=== PATIENT | female | born 1945 | race Caucasian/White ===

== ENCOUNTER → 2019-06-27 | Outpatient (CLI) | payer MEDICARE ==
[~2019-06-27] MED LIST: AC325T PO; ALOE1CAP PO; ASCO1TAB17 PO; CATHETER FLUSH 10 ML SYR IV PRN; CETI5TAB6 PO; ERGO400C PO; FEXO180T PO; FLT05NA16 NSEACH; FLUR100T2 PO; IBUP-30 PO; LEVO175T2 PO; LEVO200T30 PO; LORA10TA7 PO; NIAC250T17 PO; OMEG10005 PO; OMEG1CAP58 PO; REGADENOSON 0.4 MG/5 ML SYR (LEXISCAN) IV ONE; VALS320T8 PO; VITA200C53 PO; citrical PO
[2019-06-27 13:49] VITALS: BP 171/97
--- NOTE | 2019-06-27 16:21 | STRESS TEST ---
DATE OF SERVICE: 06/27/2019 LEXISCAN MYOVIEW STRESS TEST REPORT REFERRING PHYSICIANS: Dr. Ana Trayc and Dr. Nelson. Baseline heart rate is 97, baseline blood pressure 187/122. Baseline EKG is sinus rhythm with no ischemic changes. In summary, the patient was injected with 10.24 mCi of technetium-99 Myoview and the resting images were obtained. Then, the patient received 0.4 mg of Lexiscan followed by 28.8 mCi of technetium-99 Myoview. Throughout the test, there were no EKG changes. The resting and stress images were reviewed and compared in the short axis, horizontal long axis, and vertical long axis views. Review of the images showed good radiotracer uptake with no significant ischemia or infarction. SSS is 2, SDS 2, TID value 0.97. On the gated images, the left ventricle appeared to be normal size with normal contractility. Calculated ejection fraction 73%. CONCLUSION: 1. The patient tolerated Lexiscan well. 2. No significant ischemia or infarction on SPECT images. 3. Normal left ventricular size with normal contractility. Calculated ejection fraction 73%. Job ID: [id number] DocumentID: [id number] Dictated Date: 06/27/2019 16:09:51 Alley Worker Date: 06/27/2019 16:21:25 Dictated By: ERICK YEPEZ MD
== END ==
LOC: CARD 10:47
PROVIDERS: ATTEND Internal Medicine Cardiovascular Disease
DX: I10 Essential (primary) hypertension (principal); E78.1 Pure hyperglyceridemia; G47.33 Obstructive sleep apnea (adult) (pediatric); R00.2 Palpitations
CPT/HCPCS: 78452; 93017; 93306

== ENCOUNTER → 2020-03-24 | Outpatient (CLI) | payer MEDICARE ==
[~2020-03-24] MED LIST changes: -CATHETER FLUSH 10 ML SYR IV PRN; -REGADENOSON 0.4 MG/5 ML SYR (LEXISCAN) IV ONE
[2020-03-24 08:13] LABS: HEMOGLOBIN 13.4 G/DL (11.5-16.0); RED CELL DISTRIBUTION WIDTH 12.7 % (10.0-14.5); WHITE BLOOD COUNT 6.3 10^3/uL (4.3-11.0)
[2020-03-24 08:14] LABS: MEAN PLATELET VOLUME 8.4 FL (7.4-10.4)
[2020-03-24 08:28] LABS: CHLORIDE 100 MMOL/L (98-107); POTASSIUM 4.5 MMOL/L (3.6-5.0); SODIUM 140 MMOL/L (135-145)
[2020-03-24 08:29] LABS: ALANINE AMINOTRANSFERASE 19 U/L (0-55); ALBUMIN 4.3 GM/DL (3.2-4.5); ALKALINE PHOSPHATASE 63 U/L (40-136); BILIRUBIN,TOTAL 0.6 MG/DL (0.1-1.0); BUN/CREATININE RATIO 24; CALCIUM 9.4 MG/DL (8.5-10.1); CARBON DIOXIDE 27 MMOL/L (21-32); CREATININE SERUM 0.72 MG/DL (0.60-1.30); GFR ESTIMATED > 60; GLUCOSE 107 MG/DL (70-105); TOTAL PROTEIN 6.8 GM/DL (6.4-8.2)
[2020-03-24 15:38] LABS: CHOLESTEROL 214 MG/DL (< 200); HDL CHOLESTEROL 44 MG/DL (40-60); TRIGLYCERIDES 272 MG/DL (<150); VLDL CHOLESTEROL 54 MG/DL (5-40)
== END ==
LOC: LAB FS 07:41
PROVIDERS: ATTEND Family Medicine
DX: I10 Essential (primary) hypertension (principal); E89.0 Postprocedural hypothyroidism
CPT/HCPCS: 36415; 80053; 80061; 84443; 85027

== ENCOUNTER → 2020-05-12 | Outpatient (CLI) | payer MEDICARE | LOC: LAB FS 09:01 | PROVIDERS: ATTEND Orthopaedic Surgery Orthopaedic Surgery of the Spine | DX: Z01.812 Encounter for preprocedural laboratory examination (principal); M48.061 Spinal stenosis, lumbar region without neurogenic claudication; Z20.828 Contact with and (suspected) exposure to other viral communicable diseases | CPT/HCPCS: 87635 ==

== ENCOUNTER → 2020-08-07 | Outpatient (CLI) | payer MEDICARE ==
[2020-08-07 15:31] LABS: FREE T4 (FREE THYROXINE) 1.2 NG/DL (0.70-1.48)
== END ==
LOC: LAB FS 11:03
PROVIDERS: ATTEND Family Medicine
DX: R00.2 Palpitations (principal)
CPT/HCPCS: 36415; 84439; 84443; 84481

== ENCOUNTER → 2020-11-03 | Outpatient (CLI) | payer MEDICARE ==
[2020-11-03 08:21] LABS: HEMATOCRIT 42 % (35-52); HEMOGLOBIN 13.9 G/DL (11.5-16.0); MEAN CORPUSCULAR HEMOGLOBIN 31 PG (25-34); WHITE BLOOD COUNT 6.3 10^3/uL (4.3-11.0)
[2020-11-03 08:22] LABS: BASOPHILS % (AUTO) 0 % (0-10); EOSINOPHILS # (AUTO) 0.1 10^3/uL (0.0-0.3); EOSINOPHILS % (AUTO) 2 % (0-10); LYMPHOCYTES # (AUTO) 1.5 X 10^3 (1.0-4.0); LYMPHOCYTES % (AUTO) 23 % (12-44); MEAN CORPUSCULAR HGB CONC 33 G/DL (32-36); MEAN CORPUSCULAR VOLUME 93 FL (80-99); MEAN PLATELET VOLUME 8.2 FL (7.4-10.4); MONOCYTES # (AUTO) 0.6 X 10^3 (0.0-1.0); MONOCYTES % (AUTO) 9 % (0-12); NEUTROPHILS # (AUTO) 4.1 X 10^3 (1.8-7.8); NEUTROPHILS % (AUTO) 65 % (42-75); PLATELET COUNT 339 10^3/uL (130-400)
[2020-11-03 09:01] LABS: BUN/CREATININE RATIO 25; CALCIUM 9.8 MG/DL (8.5-10.1); CARBON DIOXIDE 30 MMOL/L (21-32); CHLORIDE 99 MMOL/L (98-107); CREATININE SERUM 0.75 MG/DL (0.60-1.30); GFR ESTIMATED > 60; GLUCOSE 102 MG/DL (70-105); POTASSIUM 3.9 MMOL/L (3.6-5.0); SODIUM 138 MMOL/L (135-145)
[2020-11-03 09:02] LABS: ALANINE AMINOTRANSFERASE 21 U/L (0-55); ALBUMIN 4.7 GM/DL (3.2-4.5); ALKALINE PHOSPHATASE 83 U/L (40-136); BILIRUBIN,TOTAL 0.8 MG/DL (0.1-1.0); TOTAL PROTEIN 7.4 GM/DL (6.4-8.2)
[2020-11-03 15:05] LABS: CHOLESTEROL 237 MG/DL (< 200); HDL CHOLESTEROL 49 MG/DL (40-60); TRIGLYCERIDES 168 MG/DL (<150); VLDL CHOLESTEROL 34 MG/DL (5-40)
== END ==
LOC: LAB FS 07:58
PROVIDERS: ATTEND Family Medicine
DX: E78.5 Hyperlipidemia, unspecified (principal); R00.2 Palpitations
CPT/HCPCS: 36415; 80053; 80061; 85025

== ENCOUNTER → 2020-11-25 | Outpatient (CLI) | payer MEDICARE | LOC: CARD 10:41 | PROVIDERS: ATTEND Internal Medicine Cardiovascular Disease | DX: R00.2 Palpitations (principal) | CPT/HCPCS: 93225; 93226; 93306 ==

== ENCOUNTER → 2021-02-16 | Outpatient (CLI) | payer MEDICARE ==
[2021-02-16 22:39] LABS: FREE T4 (FREE THYROXINE) 1.13 NG/DL (0.70-1.48)
== END ==
LOC: LAB FS 14:03
PROVIDERS: ATTEND Family Medicine
DX: E89.0 Postprocedural hypothyroidism (principal)
CPT/HCPCS: 36415; 84439; 84443

== ENCOUNTER → 2021-05-22 | Outpatient (CLI) | payer MEDICARE ==
[2021-05-22 09:59] LABS: POTASSIUM 4.6 MMOL/L (3.6-5.0)
[2021-05-22 10:00] LABS: ALBUMIN 4.4 GM/DL (3.2-4.5); BILIRUBIN,TOTAL 0.6 MG/DL (0.1-1.0); CALCIUM 9.3 MG/DL (8.5-10.1); CREATININE SERUM 0.72 MG/DL (0.60-1.30); TOTAL PROTEIN 7.3 GM/DL (6.4-8.2)
== END ==
LOC: LAB FS 07:52
PROVIDERS: ATTEND Internal Medicine Cardiovascular Disease
DX: E78.2 Mixed hyperlipidemia (principal)
CPT/HCPCS: 36415; 80053; 80061

== ENCOUNTER 2021-09-07 05:38 | Outpatient (CLI) | payer MEDICARE ==
[~2021-09-07] VITALS: Ht 165.1 cm; Wt 96.0 kg
[2021-09-07] MEDS ORDERED: VIT1TABL26 PO (15:25)
[2021-09-07] MEDS ORDERED: MULT-593 PO (15:25)
[2021-09-07] MEDS ORDERED: CHOL200012 PO (15:25)
[2021-09-07] MEDS ORDERED: ACET-2650 PO (15:25)
[2021-09-07] MEDS ORDERED: BACL10TA PO (15:25)
[2021-09-07] MEDS ORDERED: BIOT5000 PO (15:25)
[2021-09-07] MEDS ORDERED: GABA100C PO (15:25)
[2021-09-07] MEDS ORDERED: CALC-1077 PO (15:25)
[2021-09-07] MEDS ORDERED: IBUP-2185 PO (15:25)
[2021-09-07] MEDS ORDERED: LORA10CA PO (15:25)
[2021-09-07] MEDS ORDERED: CRAN400T3 PO (15:25)
[2021-09-07] MEDS ORDERED: ASCO500T7 PO (15:25)
[2021-09-07] MEDS ORDERED: VALS160T29 PO (15:25)
[2021-09-07] MEDS ORDERED: LEVO175C2 PO (15:25)
[2021-09-07] MEDS ORDERED: VITA100033 PO (15:25)
== END 2021-09-08 08:39 | disposition home or self-care (01) ==
LOC: PREOP 05:38
PROVIDERS: ATTEND Surgery
DX: Z01.818 Encounter for other preprocedural examination (principal)

== ENCOUNTER → 2021-09-11 | Outpatient (CLI) | payer MEDICARE ==
[~2021-09-11] MED LIST changes: +ACET-2650 PO; +ASCO500T7 PO; +BACL10TA PO; +BIOT5000 PO; +CALC-1077 PO; +CHOL200012 PO; +CRAN400T3 PO; +GABA100C PO; +IBUP-2185 PO; +LEVO175C2 PO; +LORA10CA PO; +MULT-593 PO; +OMEP40CA6 PO; +VALS160T29 PO; +VIT1TABL26 PO; +VITA100033 PO
== END ==
LOC: LAB FS 09:45
PROVIDERS: ATTEND Surgery
DX: Z01.812 Encounter for preprocedural laboratory examination (principal); R13.10 Dysphagia, unspecified; Z20.822 Contact with and (suspected) exposure to COVID-19
CPT/HCPCS: 87635

== ENCOUNTER 2021-09-14 09:14 | Day surgery (SDC) | payer MEDICARE ==
[~2021-09-14] VITALS: Ht 165 cm; Wt 96.0 kg
[~2021-09-14 09:14] MED LIST changes: -OMEP40CA6 PO
[2021-09-14] MEDS ORDERED: LACTATED RINGERS 1,000 ML IV STA (09:23)
[2021-09-14] MEDS ORDERED: HURRICAINE EXT TUBE (BENZOCAINE) XX PRN (09:30)
--- NOTE | 2021-09-14 09:33 | Progress Note-Pre Operative ---
Pre-Operative Progress Note H&P Reviewed The H&P was reviewed, patient examined and no changes noted. Time Seen by Provider: 09:31 Date H&P Reviewed: Sep 14, 2021 Time H&P Reviewed: 09:31 Pre-Operative Diagnosis: Dysphagia SALIMA MAXWELL DO Sep 14, 2021 09:33
[2021-09-14 09:45] VITALS: BP 179/94
[2021-09-14] MEDS ORDERED: PROPOFOL INJECTION 50 ML IV ONE (10:56)
[2021-09-14 11:15] VITALS: BP 155/78
--- NOTE | 2021-09-14 11:16 | Progress Note-Post Operative ---
Post-Operative Progess Note Surgeon (s)/General Technician (s) Surgeon SALIMA MAXWELL DO General Technician: none Pre-Operative Diagnosis Dysphagia Post-Operative Diagnosis severe esophagitis hiatal hernia gastritis Procedure & Operative Findings Date of Procedure 09/14/21 Procedure Performed/Findings EGD with bx PROCEDURE NOTE: After informed consent was obtained, the patient was brought to the endoscopy suite, placed in bed in left lateral decubitus position. She was administered IV sedation by the GAS MASK INSPECTOR who then monitored vitals the entire time, heart rate, blood pressure and pulse ox and the scope was inserted down the mouth through the esophagus into the stomach. On the way down, noted severe esophagitis, took a picture, pushed into the stomach, pushed past the antrum into the duodenum. Duodenum looked good. Pulled back and did a biopsy of antrum, then retroflexed the scope, saw moderate hiatal hernia, took a picture of this and then pulled the scope into the GE junction, took another picture of the hiatal hernia and then did a biopsy of the GE junction. Pushed the scope back into the stomach, suctioned all the air out of the stomach. At this point pulled the scope up the esophagus and out the mouth. She may have had some mild stricturing at the GE junction, nothing up in the esophagus. Had a little bit of trouble passing scope into the stomach, but then afterward no trouble at all and it looked widely patent. The patient tolerated the procedure, and she recovered in endoscopy suite. Anesthesia Type IV sedation by GAS MASK INSPECTOR Estimated Blood Loss Estimated blood loss (mL): scant Specimens/Packing Specimens Removed antral bx GE jxn bx SALIMA MAXWELL DO Sep 14, 2021 11:16
[2021-09-14] MEDS ORDERED: OMEP40CA6 PO (11:17)
--- NOTE | 2021-09-14 11:17 | Endoscopy Discharge Instruct ---
Endo Procedure/Findings Findings 1.: Greenfield's Esophagus 2.: Gastritis Discharge Instructions - Activity: You might feel a little sleepy until tomorrow. This is due to the medicine you received to relax you. Until tomorrow, you should: NOT drive a car, operate machinery or power tools. NOT drink any alcoholic beverages. NOT make any important decisions or sign importortant papers. Do not return to work until tomorrow, unless otherwise instructed. Resume previous activities tomorrow. Diet: Start by taking liquids. If you tolerate liquids, advance to solid food. 1.: EGD in 1 year Notify Physician - If you experience excessive bleeding, unusual abdominal pain, fever, or chest pain, contact your doctor immediately. SALIMA MAXWELL DO Sep 14, 2021 11:17
[2021-09-14 11:20] VITALS: BP 178/95
[2021-09-14 11:25] VITALS: BP 154/82
--- NOTE | 2021-09-14 11:44 | Anesthesia-General Post-Op ---
MAC Patient Condition Mental Status/LOC: Same as Preop Cardiovascular: Satisfactory Nausea/Vomiting: Absent Respiratory: Satisfactory Pain: Controlled Complications: Absent Post Op Complications Complications None Follow Up Care/Instructions Patient Instructions None needed. Anesthesiology Discharge Order Discharge Order Patient is doing well, no complaints, stable vital signs, no apparent adverse anesthesia problems. No complications reported per nursing. CARLITOS ENGLISH CRNA Sep 14, 2021 11:44
[2021-09-14 11:45] VITALS: BP 154/82
[2021-09-14 12:00] VITALS: BP 160/102
== END 2021-09-14 12:00 | disposition home or self-care (01) ==
LOC: ENDO 09:14
PROVIDERS: ATTEND Surgery
DX: K21.00 Gastro-esophageal reflux disease with esophagitis, without bleeding (principal); K29.50 Unspecified chronic gastritis without bleeding; K44.9 Diaphragmatic hernia without obstruction or gangrene; E03.9 Hypothyroidism, unspecified; I10 Essential (primary) hypertension; Z79.890 Hormone replacement therapy; Z79.899 Other long term (current) drug therapy; Z90.49 Acquired absence of other specified parts of digestive tract; Z90.710 Acquired absence of both cervix and uterus

== ENCOUNTER → 2022-02-09 | Outpatient (CLI) | payer MEDICARE ==
[~2022-02-09] MED LIST changes: +OMEP40CA6 PO
[2022-02-09 09:20] LABS: ALANINE AMINOTRANSFERASE 22 U/L (0-55); ALBUMIN 4.7 GM/DL (3.2-4.5); ALKALINE PHOSPHATASE 111 U/L (40-136); BILIRUBIN,TOTAL 0.6 MG/DL (0.1-1.0); BUN/CREATININE RATIO 28; CALCIUM 9.6 MG/DL (8.5-10.1); CARBON DIOXIDE 27 MMOL/L (21-32); CHLORIDE 101 MMOL/L (98-107); CREATININE SERUM 0.71 MG/DL (0.60-1.30); GFR ESTIMATED 89; GLUCOSE 100 MG/DL (70-105); POTASSIUM 4.1 MMOL/L (3.6-5.0); SODIUM 140 MMOL/L (135-145); TOTAL PROTEIN 7.4 GM/DL (6.4-8.2)
[2022-02-09 15:43] LABS: CHOLESTEROL 241 MG/DL (< 200); HDL CHOLESTEROL 47 MG/DL (40-60); TRIGLYCERIDES 259 MG/DL (<150); VLDL CHOLESTEROL 52 MG/DL (5-40)
== END ==
LOC: LAB FS 08:13
PROVIDERS: ATTEND Family Medicine
DX: E89.0 Postprocedural hypothyroidism (principal); I10 Essential (primary) hypertension
CPT/HCPCS: 36415; 80053; 80061; 84443

== ENCOUNTER 2022-02-25 08:52 | Outpatient (CLI) | payer MEDICARE ==
[~2022-02-25] VITALS: Ht 165.1 cm; Wt 93.0 kg
[2022-02-25] MEDS ORDERED: LANS15CA5 PO (12:51)
[2022-02-25] MEDS ORDERED: FAMO-144 PO (12:51)
[2022-02-25] MEDS ORDERED: IBUP-2473 PO (12:51)
[2022-02-25] MEDS ORDERED: BACL5TAB PO (12:51)
[2022-02-25] MEDS ORDERED: DULO20CA PO (12:51)
== END 2022-02-25 13:19 | disposition home or self-care (01) ==
LOC: PREOP 08:52
PROVIDERS: ATTEND Surgery
DX: Z01.818 Encounter for other preprocedural examination (principal)

== ENCOUNTER 2022-03-01 08:31 | Day surgery (SDC) | payer MEDICARE ==
[~2022-03-01] VITALS: Ht 165.1 cm; Wt 93.0 kg
[~2022-03-01 08:31] MED LIST changes: +BACL5TAB PO; +DULO20CA PO; +FAMO-144 PO; +IBUP-2473 PO; +LANS15CA5 PO
[2022-03-01] MEDS ORDERED: LACTATED RINGERS 1,000 ML IV STA (08:39)
[2022-03-01] MEDS ORDERED: HURRICAINE EXT TUBE (BENZOCAINE) XX PRN (08:45)
[2022-03-01 08:53] VITALS: BP 201/101
--- NOTE | 2022-03-01 08:57 | Progress Note-Pre Operative ---
Pre-Operative Progress Note H&P Reviewed The H&P was reviewed, patient examined and no changes noted. Time Seen by Provider: 08:53 Date H&P Reviewed: March 01, 2022 Time H&P Reviewed: 08:53 Pre-Operative Diagnosis: Erosive Esophagitis SALIMA MAXWELL DO March 01, 2022 08:57
[2022-03-01] MEDS ORDERED: proPOfol 200 MG/20 ML (DIPRIVAN) VIAL IV ONE (09:27)
--- NOTE | 2022-03-01 09:43 | Progress Note-Post Operative ---
Post-Operative Progess Note Surgeon (s)/Stained Glass Joiner (s) Surgeon SALIMA MAXWELL DO Stained Glass Joiner: none Pre-Operative Diagnosis Erosive Esophagitis Post-Operative Diagnosis Mild Gastritis Hiatal hernia Procedure & Operative Findings Date of Procedure 03/01/22 Procedure Performed/Findings EGD with bx PROCEDURE NOTE: After informed consent was obtained, the patient was brought to the endoscopy suite, placed in bed in left lateral decubitus position. She was administered IV sedation by the JAVA ANDROID DEVELOPER who then monitored vitals the entire time, heart rate, blood pressure and pulse ox and the scope was inserted down the mouth through the esophagus into the stomach. On the way down, did not see any of the erosive esophagitis we had seen before. Pushed into the stomach and past the antrum into the duodenum. Duodenum looked good. Pulled back and did a biopsy of the antrum, then retroflexed the scope, and saw a small 0.5cm hiatal hernia. I took a picture of this and then pulled the scope into the GE junction, took another picture of the hiatal hernia and then did a biopsy of the GE junction. Pushed the scope back into the stomach, suctioned all the air out of the stomach. At this point pulled the scope up the esophagus and out the mouth. Took a couple more pictures in the esophagus, appeared normal. The patient tolerated the procedure, and she recovered in endoscopy suite. Anesthesia Type IV sedation by anesthesia Estimated Blood Loss Estimated blood loss (mL): scant Specimens/Packing Specimens Removed antral bx GE jxn bx SALIMA MAXWELL DO March 01, 2022 09:43
--- NOTE | 2022-03-01 09:44 | Endoscopy Discharge Instruct ---
Endo Procedure/Findings Findings 1.: Gastritis 2.: Hiatal Hernia Discharge Instructions - Activity: You might feel a little sleepy until tomorrow. This is due to the medicine you received to relax you. Until tomorrow, you should: NOT drive a car, operate machinery or power tools. NOT drink any alcoholic beverages. NOT make any important decisions or sign importortant papers. Do not return to work until tomorrow, unless otherwise instructed. Resume previous activities tomorrow. Diet: Start by taking liquids. If you tolerate liquids, advance to solid food. 1.: EGD in 3 years Notify Physician - If you experience excessive bleeding, unusual abdominal pain, fever, or chest pain, contact your doctor immediately. SALIMA MAXWELL DO March 01, 2022 09:44
[2022-03-01 09:45] VITALS: BP 149/66
[2022-03-01 09:50] VITALS: BP 178/86
[2022-03-01 10:15] VITALS: BP 178/86
[2022-03-01 10:20] VITALS: BP 174/93
--- NOTE | 2022-03-01 11:37 | Anesthesia-General Post-Op ---
MAC Patient Condition Mental Status/LOC: Same as Preop Cardiovascular: Satisfactory Nausea/Vomiting: Absent Respiratory: Satisfactory Pain: Controlled Complications: Absent Post Op Complications Complications None Follow Up Care/Instructions Patient Instructions None needed. Anesthesiology Discharge Order Discharge Order Patient was doing well this morning after the procedure with no complaints, stable vital signs, no apparent adverse anesthesia problems. FRANK ACOSTA DO March 01, 2022 11:37
== END 2022-03-01 10:35 | disposition home or self-care (01) ==
LOC: ENDO 08:31
PROVIDERS: ATTEND Surgery
DX: K29.50 Unspecified chronic gastritis without bleeding (principal); K44.9 Diaphragmatic hernia without obstruction or gangrene; K20.90 Esophagitis, unspecified without bleeding; I10 Essential (primary) hypertension; E66.9 Obesity, unspecified; Z68.34 Body mass index [BMI] 34.0-34.9, adult; Z79.899 Other long term (current) drug therapy; Z28.310 Unvaccinated for COVID-19; Z28.89 Immunization not carried out for other reason

== ENCOUNTER → 2022-06-03 | Outpatient (CLI) | payer MEDICARE | LOC: CARDFS 13:37 | PROVIDERS: ATTEND Physician Assistant | DX: I11.9 Hypertensive heart disease without heart failure (principal) | CPT/HCPCS: 93306 ==

== ENCOUNTER → 2022-06-03 | Outpatient (CLI) | payer MEDICARE ==
[2022-06-03 14:17] LABS: CALCIUM 9.9 MG/DL (8.5-10.1); CREATININE SERUM 0.77 MG/DL (0.60-1.30)
== END ==
LOC: LAB FS 13:42
PROVIDERS: ATTEND Physician Assistant
DX: G47.33 Obstructive sleep apnea (adult) (pediatric) (principal); F41.1 Generalized anxiety disorder; E78.2 Mixed hyperlipidemia; I65.23 Occlusion and stenosis of bilateral carotid arteries; I10 Essential (primary) hypertension
CPT/HCPCS: 36415; 80048

== ENCOUNTER → 2022-08-24 | Outpatient (CLI) | payer MEDICARE ==
[2022-08-24 10:12] LABS: POTASSIUM 4.2 MMOL/L (3.6-5.0)
[2022-08-24 10:13] LABS: ALBUMIN 4.5 GM/DL (3.2-4.5); BILIRUBIN,TOTAL 0.6 MG/DL (0.1-1.0); CALCIUM 9.6 MG/DL (8.5-10.1); CREATININE SERUM 0.68 MG/DL (0.60-1.30); TOTAL PROTEIN 7.2 GM/DL (6.4-8.2)
== END ==
LOC: LAB FS 08:06
PROVIDERS: ATTEND Family Medicine
DX: R13.19 Other dysphagia (principal); I10 Essential (primary) hypertension; E89.0 Postprocedural hypothyroidism; M19.90 Unspecified osteoarthritis, unspecified site
CPT/HCPCS: 36415; 80053; 80061; 84443

== ENCOUNTER 2022-09-27 05:32 | Outpatient (CLI) | payer MEDICARE ==
[~2022-09-27] VITALS: Ht 165.1 cm; Wt 91.0 kg
[2022-09-29] MEDS ORDERED: VITA-259 PO (14:22)
[2022-09-29] MEDS ORDERED: MULT-1029 PO (14:22)
[2022-09-29] MEDS ORDERED: ASCO500C17 PO (14:22)
[2022-09-29] MEDS ORDERED: VIT1TABL26 PO (14:22)
== END 2022-09-29 14:50 | disposition home or self-care (01) ==
LOC: PREOP 05:32
PROVIDERS: ATTEND Surgery
DX: Z01.818 Encounter for other preprocedural examination (principal)

== ENCOUNTER 2022-10-04 08:36 | Day surgery (SDC) | payer MEDICARE ==
[~2022-10-04] VITALS: Ht 165.1 cm; Wt 91.0 kg
[~2022-10-04 08:36] MED LIST changes: +ASCO500C17 PO; +MULT-1029 PO; +VITA-259 PO
[2022-10-04] MEDS ORDERED: LACTATED RINGERS 1,000 ML IV STA (08:42)
[2022-10-04] MEDS ORDERED: HURRICAINE EXT TUBE (BENZOCAINE) XX PRN (08:45)
--- NOTE | 2022-10-04 08:50 | Progress Note-Pre Operative ---
Pre-Operative Progress Note Date of Available H&P: Sep 21, 2022 Date H&P Reviewed: Oct 04, 2022 Time H&P Reviewed: 08:48 History & Physical: H&P Reviewed, Patient Examed, No changes noted Pre-Operative Diagnosis: GERD, N/V SALIMA MAXWELL DO Oct 04, 2022 08:50
[2022-10-04 08:58] VITALS: BP 184/99
[2022-10-04] MEDS ORDERED: PROPOFOL INJECTION 50 ML IV ONE (09:15)
[2022-10-04 09:30] VITALS: BP 151/77
--- NOTE | 2022-10-04 09:30 | Progress Note-Post Operative ---
Post-Operative Progess Note Surgeon (s)/Longwall Headgate Operator (s) Surgeon SALIMA MAXWELL DO Longwall Headgate Operator: none Pre-Operative Diagnosis GERD, N/V Post-Operative Diagnosis Gastritis Hiatal hernia Esophageal stricture Procedure & Operative Findings Date of Procedure 10/04/22 Procedure Performed/Findings EGD with bx PROCEDURE NOTE: After informed consent was obtained, the patient was brought to the endoscopy suite, placed in bed in left lateral decubitus position. She was administered IV sedation by the COLLECTIONS SPECIALIST who then monitored vitals the entire time, heart rate, blood pressure and pulse ox and the scope was inserted down the mouth through the esophagus into the stomach. On the way down, noted a stricture just before the stomach. Able to push through easily, she actually coughed and the scope was almost pulled into the stomach. I did take a picture just before getting past it. Once in the stomach, pushed past the antrum into the duodenum; duodenum looked good. Pulled back and noted some mild to moderate gastritis and did a biopsy of the antrum. Then retroflexed the scope, saw a small hiatal hernia, took a picture of this and then pulled the scope into the GE junction, took another picture of the hiatal hernia and then did a biopsy of the strictured area at the GE junction. Pushed the scope back into the stomach, suctioned all the air out of the stomach. At this point pulled the scope up the esophagus and out the mouth. The patient tolerated the procedure, and she recovered in endoscopy suite. Anesthesia Type IV sedation by COLLECTIONS SPECIALIST Estimated Blood Loss Estimated blood loss (mL): scant Specimens/Packing Specimens Removed antral bx GE jxn/Stricture bx SALIMA MAXWELL DO Oct 04, 2022 09:30
--- NOTE | 2022-10-04 09:31 | Endoscopy Discharge Instruct ---
Endo Procedure/Findings Findings 1.: Gastritis 2.: Hiatal Hernia 3.: Stricture (Esophageal) Discharge Instructions - Activity: You might feel a little sleepy until tomorrow. This is due to the medicine you received to relax you. Until tomorrow, you should: NOT drive a car, operate machinery or power tools. NOT drink any alcoholic beverages. NOT make any important decisions or sign importortant papers. Do not return to work until tomorrow, unless otherwise instructed. Resume previous activities tomorrow. Diet: Start by taking liquids. If you tolerate liquids, advance to solid food. 1.: EGD in 1 year Notify Physician - If you experience excessive bleeding, unusual abdominal pain, fever, or chest pain, contact your doctor immediately. SALIMA MAXWELL DO Oct 04, 2022 09:31
[2022-10-04 09:35] VITALS: BP 153/82
[2022-10-04 09:40] VITALS: BP 156/89
[2022-10-04 10:00] VITALS: BP 179/95
[2022-10-04 10:05] VITALS: BP 179/95
--- NOTE | 2022-10-04 13:30 | Anesthesia-General Post-Op ---
MAC Patient Condition Mental Status/LOC: Same as Preop Cardiovascular: Satisfactory Nausea/Vomiting: Absent Respiratory: Satisfactory Pain: Controlled Complications: Absent Post Op Complications Complications None Follow Up Care/Instructions Patient Instructions None needed. Anesthesiology Discharge Order Discharge Order Patient is doing well, no complaints, stable vital signs, no apparent adverse anesthesia problems. No complications reported per nursing. CARLITOS ENGLISH CRNA Oct 04, 2022 13:30
== END 2022-10-04 10:08 | disposition home or self-care (01) ==
LOC: ENDO 08:36
PROVIDERS: ATTEND Surgery
DX: K29.70 Gastritis, unspecified, without bleeding (principal); K44.9 Diaphragmatic hernia without obstruction or gangrene; K22.2 Esophageal obstruction; K21.00 Gastro-esophageal reflux disease with esophagitis, without bleeding; K31.89 Other diseases of stomach and duodenum; Z79.899 Other long term (current) drug therapy; E66.9 Obesity, unspecified; Z28.310 Unvaccinated for COVID-19; Z85.828 Personal history of other malignant neoplasm of skin; Z68.33 Body mass index [BMI] 33.0-33.9, adult

== ENCOUNTER 2022-10-26 06:33 | Outpatient (CLI) | payer MEDICARE ==
[2022-10-27] MEDS ORDERED: FAMO-119 PO (12:25)
[2022-10-27] MEDS ORDERED: LANS30CA PO (12:25)
== END 2022-10-27 12:31 | disposition home or self-care (01) ==
LOC: PREOP 06:33
PROVIDERS: ATTEND Surgery
DX: Z01.818 Encounter for other preprocedural examination (principal)

== ENCOUNTER 2022-11-01 10:50 | Day surgery (SDC) | payer MEDICARE ==
[~2022-11-01] VITALS: Ht 165 cm; Wt 91.0 kg
[~2022-11-01 10:50] MED LIST changes: +FAMO-119 PO; +LANS30CA PO
[2022-11-01] MEDS ORDERED: LACTATED RINGERS 1,000 ML IV STA (10:57)
[2022-11-01] MEDS ORDERED: HURRICAINE EXT TUBE (BENZOCAINE) XX PRN (11:00)
[2022-11-01 11:10] VITALS: BP 198/95
--- NOTE | 2022-11-01 11:20 | Progress Note-Pre Operative ---
Pre-Operative Progress Note Date of Available H&P: Oct 12, 2022 Date H&P Reviewed: Nov 01, 2022 Time H&P Reviewed: 11:14 History & Physical: H&P Reviewed, Patient Examed, No changes noted Pre-Operative Diagnosis: Esophageal stricture SALIMA MAXWELL DO Nov 01, 2022 11:20
[2022-11-01] MEDS ORDERED: PROPOFOL INJECTION 0 ML IV ONE (11:35)
[2022-11-01] MEDS ORDERED: proPOfol 200 MG/20 ML (DIPRIVAN) VIAL IV ONE (11:36)
--- NOTE | 2022-11-01 11:54 | Progress Note-Post Operative ---
Post-Operative Progess Note Surgeon (s)/Colorist Formulator (s) Surgeon SALIMA MAXWELL DO Colorist Formulator: none Pre-Operative Diagnosis Esophageal stricture Post-Operative Diagnosis Hiatal hernia ??gastric ulcer Procedure & Operative Findings Date of Procedure 11/01/22 Procedure Performed/Findings EGD with bx PROCEDURE NOTE: After informed consent was obtained, the patient was brought to the endoscopy suite, placed in bed in left lateral decubitus position. She was administered IV sedation by the FOOD SERVICE who then monitored vitals the entire time, heart rate, blood pressure and pulse ox and the scope was inserted down the mouth through the esophagus into the stomach. On the way down, noted some mild esophagitis, took a picture, pushed into the stomach, pushed past the antrum into the duodenum. Duodenum looked good. Pulled back, saw what might be an ulcer and did a biopsy of this. Then retroflexed the scope, saw moderat hiatal hernia, took a picture of this and then pulled the scope into the GE junction. Took a picture of the GE junction and then did a biopsy of the GE junction. Pushed the scope back into the stomach, suctioned all the air out of the stomach. At this point pulled the scope up the esophagus and out the mouth. I did not see any stricture point in the esophagus and it appeared wide open; no dilation needed. The patient tolerated the procedure, and she recovered in endoscopy suite. Anesthesia Type IV sedation by FOOD SERVICE Estimated Blood Loss Estimated blood loss (mL): scant Specimens/Packing Specimens Removed body of stomach, possible ulcer GE jxn SALIMA MAXWELL DO Nov 01, 2022 11:54
--- NOTE | 2022-11-01 11:55 | Endoscopy Discharge Instruct ---
Endo Procedure/Findings Findings 1.: Hiatal Hernia 2.: Gastric Ulcer Discharge Instructions - Activity: You might feel a little sleepy until tomorrow. This is due to the medicine you received to relax you. Until tomorrow, you should: NOT drive a car, operate machinery or power tools. NOT drink any alcoholic beverages. NOT make any important decisions or sign importortant papers. Do not return to work until tomorrow, unless otherwise instructed. Resume previous activities tomorrow. Diet: Start by taking liquids. If you tolerate liquids, advance to solid food. 1.: EGD in 1 year Notify Physician - If you experience excessive bleeding, unusual abdominal pain, fever, or chest pain, contact your doctor immediately. SALIMA MAXWELL DO Nov 01, 2022 11:55
[2022-11-01 11:59] VITALS: BP 186/88
[2022-11-01 12:05] VITALS: BP 195/89
[2022-11-01 12:25] VITALS: BP 166/94
--- NOTE | 2022-11-01 12:31 | Anesthesia-General Post-Op ---
MAC Patient Condition Mental Status/LOC: Same as Preop Cardiovascular: Satisfactory Nausea/Vomiting: Absent Respiratory: Satisfactory Pain: Controlled Complications: Absent Post Op Complications Complications None Follow Up Care/Instructions Patient Instructions I discussed with the patient and her that her NIBP has been elevated upon arrival to the hospital, throughout the procedure, and is now trending down after sedation and metoprolol 5mg IV that I gave during the procedure. The patient takes an ARB and is managed by her primary care doctor, Dr. Tracy, and Dr. Li whom she sees frequently. The patient reported that she takes her NIBP 3-4 times a week first thing in the am and that is normally runs 130/70. I suggested the patient continue to monitor her NIBP at home, daily, and to see her primary care for a NIBP check. Patient agrees and understands the importance of doing so. Anesthesiology Discharge Order Discharge Order Patient is doing well, no complaints, stable vital signs, no apparent adverse anesthesia problems. No complications reported per nursing. CASTILLO SORTO CRNA Nov 01, 2022 12:31
[2022-11-01 12:43] VITALS: BP 166/94
== END 2022-11-01 12:43 | disposition home or self-care (01) ==
LOC: ENDO 10:50
PROVIDERS: ATTEND Surgery
DX: K21.00 Gastro-esophageal reflux disease with esophagitis, without bleeding (principal); K31.89 Other diseases of stomach and duodenum; E66.9 Obesity, unspecified; Z68.33 Body mass index [BMI] 33.0-33.9, adult; K22.2 Esophageal obstruction; K44.9 Diaphragmatic hernia without obstruction or gangrene
CPT/HCPCS: 88305

== ENCOUNTER → 2023-07-05 | Outpatient (CLI) | payer MEDICARE ==
[2023-07-05 09:04] LABS: CALCIUM 9.5 MG/DL (8.5-10.1); CREATININE SERUM 0.76 MG/DL (0.60-1.30)
[2023-07-05 09:05] LABS: ALBUMIN 4.4 GM/DL (3.2-4.5); BILIRUBIN,TOTAL 0.6 MG/DL (0.1-1.0); TOTAL PROTEIN 6.8 GM/DL (6.4-8.2)
== END ==
LOC: LAB FS 07:37
PROVIDERS: ATTEND Internal Medicine Cardiovascular Disease
DX: I25.10 Atherosclerotic heart disease of native coronary artery without angina pectoris (principal); E78.2 Mixed hyperlipidemia
CPT/HCPCS: 36415; 80053; 80061

== ENCOUNTER → 2023-10-03 | Outpatient (CLI) | payer MEDICARE ==
[2023-10-03 08:45] LABS: HEMOGLOBIN 13.6 g/dL (11.5-16.0); MEAN PLATELET VOLUME 8.3 fL (9.0-12.2); WHITE BLOOD COUNT 6.9 10^3/uL (4.3-11.0)
[2023-10-03 09:28] LABS: ALBUMIN 4.5 GM/DL (3.2-4.5); BILIRUBIN,TOTAL 0.5 MG/DL (0.1-1.0); CALCIUM 9.5 MG/DL (8.5-10.1); CREATININE SERUM 0.64 MG/DL (0.60-1.30); POTASSIUM 4.4 MMOL/L (3.6-5.0); TOTAL PROTEIN 7.4 GM/DL (6.4-8.2)
== END ==
LOC: LAB FS 08:03
PROVIDERS: ATTEND Internal Medicine Cardiovascular Disease
DX: I10 Essential (primary) hypertension (principal); F41.1 Generalized anxiety disorder; I65.23 Occlusion and stenosis of bilateral carotid arteries; G47.33 Obstructive sleep apnea (adult) (pediatric); E78.2 Mixed hyperlipidemia
CPT/HCPCS: 36415; 80053; 80061; 83036; 84443; 85027